=== PATIENT | female | born 2000 | race Caucasian/White ===

== ENCOUNTER 2024-12-12 16:14 | Outpatient (CLI) | payer BC, SELFPAY | END 2024-12-12 16:15 | disposition home or self-care (01) | PROVIDERS: PCP Family Medicine; Visit Provider Family Medicine | DX: E03.9 Hypothyroidism, unspecified (principal); E06.3 Autoimmune thyroiditis | CPT/HCPCS: 80048; 82306; 86376; 86800 ==

== ENCOUNTER 2024-12-23 13:22 | Outpatient (CLI) | payer BC, SELFPAY ==
--- NOTE | 2024-12-23 13:45 | CRLHL7_ITS ---
For Patients: As a result of the Century Cures Act, medical imaging exams and procedure reports are released immediately into your electronic medical record. You may view this report before your referring provider. If you have questions, please contact your health care provider. INDICATION: hypothyroidism COMPARISON: none TECHNIQUE: Garza scale and color Doppler images were acquired of the thyroid gland. FINDINGS: The thyroid is diffusely heterogeneous. Isthmus measures 5.5 millimeters. The right lobe measures 5.4 x 2.2 x 2.0 cm and the left lobe measures 4.9 x 2.3 x 1.5 cm in size. There are no suspicious masses or nodules. The color Doppler images demonstrate normal vascularity. There is no evidence of cervical lymphadenopathy or parathyroid mass. IMPRESSION: Diffusely heterogeneous thyroid gland without nodule. Dictated by David Perkins MD @ 12/23/2024 4:32:07 PM (Electronically Signed)
== END 2024-12-23 13:23 | disposition home or self-care (01) ==
LOC: US 13:22
PROVIDERS: PCP Family Medicine; Visit Provider Family Medicine
DX: E03.9 Hypothyroidism, unspecified (principal)
CPT/HCPCS: 76536

== ENCOUNTER 2025-02-10 09:30 | Outpatient (CLI) | payer BC, SELFPAY | END 2025-02-10 09:31 | disposition home or self-care (01) | PROVIDERS: PCP Family Medicine; Visit Provider Family Medicine | DX: E06.3 Autoimmune thyroiditis (principal) | CPT/HCPCS: 84439; 84443 ==